=== PATIENT | male | born 1995 | race African-American/Black ===

== ENCOUNTER 2019-08-02 05:21 | Emergency (ER) | payer OTHER ==
[2019-08-02 05:35] VITALS: BP 120/78
--- NOTE | 2019-08-02 06:43 | ER Document Report ---
ED General - General Chief Complaint: Low Back Pain Stated Complaint: LOWER BACK PAIN,NUMBNESS IN RIGHT LEG Time Seen by Provider: 08/02/19 05:56 TRAVEL OUTSIDE OF THE [place] IN LAST 30 DAYS: No - HPI Notes: Patient presents complaining of low back pain and right leg numbness. He states when he woke up this morning he had right low back pain with loss of sensation in the right leg. He states the back pain is better but still present. He states the right leg numbness is now gone. He denies any numbness around the testicles penis rectum or perineum. He has had no problems with bowel movements or urination. He states he has had this pain for over a year [place] He states he has a scheduled MRI in 2 weeks. He states he has had multiple x-rays that have been unremarkable. He has been receiving physical therapy that is not been helping he states. The pain in his low back is mainly on the right side. It is moderate to severe. It does radiate down the right leg. It is sharp. And it is intermittent. It is worse with movement and better with rest. Past Medical History - General Information source: Patient - Social History Smoking Status: Never Smoker Frequency of alcohol use: None Drug Abuse: None Family History: Reviewed & Not Pertinent Patient has suicidal ideation: No Patient has homicidal ideation: No Review of Systems - Review of Systems Constitutional: denies: Chills, Fever Cardiovascular: denies: Chest pain, Palpitations Respiratory: denies: Cough, Short of breath -: Yes All other systems reviewed and negative Physical Exam - Vital signs Vitals: Temp Pulse Resp BP Pulse Ox 98.7 F 55 L 16 120/78 100 08/02/19 05:30 08/02/19 05:30 08/02/19 05:30 08/02/19 05:30 08/02/19 05:30 Interpretation: Normal - General General appearance: Appears well, Alert - HEENT Head: Normocephalic, Atraumatic Eyes: Normal Pupils: PERRL - Respiratory Respiratory status: No respiratory distress Chest status: Nontender Breath sounds: Normal Chest palpation: Normal - Cardiovascular Rhythm: Regular Heart sounds: Normal auscultation Murmur: No - Abdominal Inspection: Normal Distension: No distension Bowel sounds: Normal Tenderness: Nontender Organomegaly: No organomegaly - Back Back: Tender - Some mild diffuse tenderness to palpation lumbar spine. No step- off or deformity.. No: Deformity/step-off Notes: Straight leg raise is negative bilaterally. - Extremities General upper extremity: Normal inspection, Nontender, Normal color, Normal ROM, Normal temperature General lower extremity: Normal inspection, Nontender, Normal color, Normal ROM, Normal temperature, Normal weight bearing. No: Gary's sign - Neurological Neuro grossly intact: Yes Cognition: Normal Orientation: AAOx4 Riri Coma Scale Eye Opening: Spontaneous [place] Coma Scale Verbal: Oriented [place] Coma Scale Motor: Obeys Commands Riri Coma Scale Total: 15 Speech: Normal Motor strength normal: LUE, RUE, LLE, RLE Sensory: Normal - Psychological Associated symptoms: Normal affect, Normal mood - Skin Skin Temperature: Warm Skin Moisture: Dry Skin Color: Normal Course - Re-evaluation Re-evalutation: 08/02/19 06:48 Patient presents with right low back pain and numbness he has had for over a year. There are no signs of cauda equina. I feel patient is stable for discharge and follow-up as an outpatient. - Vital Signs Vital signs: Temp Pulse Resp BP Pulse Ox 98.7 F 55 L 16 120/78 100 08/02/19 05:30 08/02/19 05:30 08/02/19 05:30 08/02/19 05:30 08/02/19 05:30 Discharge - Discharge Clinical Impression: Low back pain Qualifiers: Chronicity: acute Back pain laterality: right Sciatica presence: with sciatica Sciatica laterality: sciatica of right side Qualified Code(s): M54.41 - Lumbago with sciatica, right side Condition: Stable Disposition: HOME, SELF-CARE Instructions: Low Back Pain ([facility]), Oral Narcotic Medication ([facility]) Additional Instructions: Please call your primary physician as soon as possible to arrange follow-up. Please have the MRI as scheduled. Prescriptions: Hydrocodone/Acetaminophen [[place] 5-325 mg Tablet] 1 tab PO Q6 PRN 3 Days #12 tablet PRN Reason:
== END 2019-08-02 07:13 | disposition home or self-care (01) ==
LOC: ER 05:21
DX: M54.41 Lumbago with sciatica, right side (principal); R20.0 Anesthesia of skin
CPT/HCPCS: 99283